=== PATIENT | male | born 1960 | race Hispanic/Latino ===

== ENCOUNTER 2021-11-15 08:00 | Emergency (ER) | payer SELFPAY ==
[2021-11-15] MEDS ORDERED: Acetaminophen 500 MG TAB ONE (08:39)
== END 2021-11-15 08:35 | disposition home or self-care (01) ==
LOC: CSHERS 08:00
DX: U07.1 COVID-19 (principal); J06.9 Acute upper respiratory infection, unspecified; I10 Essential (primary) hypertension; E11.9 Type 2 diabetes mellitus without complications
CPT/HCPCS: 99283; U0003; U0005

== ENCOUNTER 2021-12-18 21:05 | Emergency (ER) | payer SELFPAY ==
[2021-12-18] MEDS ORDERED: Bupivacaine PF 0.5% 30 ML VIAL ONE (21:33)
== END 2021-12-18 21:57 | disposition home or self-care (01) ==
LOC: CSHERS 21:05
DX: K08.89 Other specified disorders of teeth and supporting structures (principal); E11.9 Type 2 diabetes mellitus without complications; I10 Essential (primary) hypertension; E78.5 Hyperlipidemia, unspecified
CPT/HCPCS: 64400; S0020